=== PATIENT | male | born 1950 | race African-American/Black ===

== ENCOUNTER 2017-05-03 09:17 | Observation (INO) | payer MEDICARE ==
[~2017-05-03] VITALS: Ht 167.6 cm; Wt 116.0 kg
[2017-05-03] VITALS (11 sets, daily range): BP systolic 135–179; BP diastolic 78–100; PULSE 77–117; RESP 15–19; TEMP 98.2–98.5; O2SAT 96–100
--- NOTE | 2017-05-03 09:47 | PD ---
HPI Chief Complaint: Syncope/Near-Syncope Time Seen by Provider: 09:24 Travel History International Travel<30 days: No Contact w/Intl Traveler<30days: No Traveled to known affect area: No History of Present Illness HPI This 66-year-old man, presents to the emergency department with a syncopal episode. His multiple medical problems according diabetes hypertension COPD. He has no heart history. He started to get an episode of coughing and gagging which he attributes to his reflux that he believes was triggered by his granddaughters perfume. He was walking to the bathroom because he felt like he needed to throw up. Apparently these kinds of episodes are not uncommon for him. However today while walking to the bathroom he then passed out and woke up on the floor. He did not feel like he had any premonitory lightheadedness, dizziness, chest pain. He did feel like maybe had a little bit of trouble breathing. His granddaughter reports that he hit his head on the wall hard enough that he put a hole in the wall. Patient complains of a little bit of low back pain that he describes as "kind of sore". Denies any headache or neck pain. EMS arrived and found the patient to be in A. fib RVR with a heart rate in the 120s or so. No history of A. fib so far as the patient knows. He otherwise had been feeling generally well and healthy. History Past Medical History Narrative Medical COPD, on 5 mg of prednisone daily, when necessary oxygen at home Hypertension Diabetes Hyperlipidemia GERD Sleep apnea, on C Pap at night Influenza Vaccination: Yes Social History Alcohol Use: No Tobacco Use: No Allergies-Medications (Allergen,Severity, Reaction): Coded Allergies: Tramadol (Verified Allergy, Intermediate, SKIN ISSUE, 05/03/17) Reported Meds & Prescriptions Reported Meds & Active Scripts Active Reported Effexor XR 24 HR (Venlafaxine HCl) 75 Mg Cap 75 Mg PO DAILY Carafate (Sucralfate) 1 Gm Tab 1 Gm PO QID On empty stomach Deltasone (Prednisone) 20 Mg Tab 5 Mg PO DAILY Klor-Con M20 (Potassium Chloride Microencaps) 20 Meq Tab 20 Meq PO EVERY OTHER DAY Protonix (Pantoprazole Sodium) 40 Mg Tab 40 Mg PO BID Metformin (Metformin HCl) 1,000 Mg Tab 1,000 Mg PO BIDPC With meals Cozaar (Losartan Potassium) 100 Mg Tab 100 Mg PO DAILY Xyzal (Levocetirizine Dihydrochloride) 5 Mg Tablet 5 Mg PO HS Duoneb (Ipratropium-Albuterol Neb) 0.5-2.5 Mg/3 Ml Neb 1 Nebule INH Q8HR NEB Hydralazine (Hydralazine HCl) 100 Mg Tab 50 Mg PO BID Take with meals Glimepiride 1 Mg Tab 1 Mg PO DAILY@1300 Take with breakfast or first main meal Flonase Nasal [place] (Fluticasone Nasal [place]) 50 Mcg/Act [place] 50 Mcg EACH NARE DAILY Famotidine 20 Mg Tab 20 Mg PO HS Atorvastatin (Atorvastatin Calcium) 20 Mg Tab 20 Mg PO HS Aspirin EC (Aspirin) 81 Mg Tabdr 81 Mg PO DAILY Proair Hfa 8.5 GM Inh (Albuterol Sulfate) 90 Mcg/Act Aer 2 Puff INH Q8HR PRN 108 mcg/actuation Review of Systems Except as stated in HPI: all other systems reviewed are Neg Physical Exam Narrative GENERAL: Generally well-appearing obese 66-year-old man, no acute distress. SKIN: Focused skin assessment warm/dry. HEAD: Atraumatic. Normocephalic. EYES: Pupils equal and round. No scleral icterus. No injection or drainage. ENT: No nasal bleeding or discharge. Mucous membranes pink and moist. NECK: Trachea midline. No JVD. CARDIOVASCULAR: Heart rates irregular. No appreciable murmur. RESPIRATORY: No accessory muscle use. Clear to auscultation. Breath sounds equal bilaterally. GASTROINTESTINAL: Abdomen soft, non-tender, nondistended. Hepatic and splenic margins not palpable. MUSCULOSKELETAL: No obvious deformities. No edema. Some dilated Veins on both legs. NEUROLOGICAL: Awake and alert. No obvious cranial nerve deficits. Motor grossly within normal limits. Normal speech. PSYCHIATRIC: Appropriate mood and affect; insight and judgment normal. Data Data Last Documented VS Vital Signs Date Time Temp Pulse Resp B/P Pulse Ox O2 Delivery O2 Flow Rate FiO2 05/03/17 11:52 92 16 159/88 99 Room Air 05/03/17 09:26 98.3 Orders Electrocardiogram (05/03/17 09:37) Complete Blood Count With Diff (05/03/17 09:37) Comprehensive Metabolic Panel (05/03/17 09:37) Prothrombin Time / Inr (Pt) (05/03/17 09:37) Act Partial Throm Time (Ptt) (05/03/17 09:37) Troponin I (05/03/17 09:37) Thyroid Stimulating Hormone (05/03/17 09:37) Chest, Single Ap (05/03/17 09:37) Ct Brain W/O Iv Contrast(Rout) (05/03/17 09:37) Blood Glucose (05/03/17 09:37) Ecg Monitoring (05/03/17 09:37) Iv Access Insert/Monitor (05/03/17 09:37) Oximetry (05/03/17 09:37) D-Dimer (05/03/17 09:37) Ct Pulmonary Angiogram (05/03/17 ) Iohexol 350 Inj (Omnipaque 350 Inj) (05/03/17 11:28) Diltiazem (Cardizem) (05/03/17 12:00) Admit Order (Ed Use Only) (05/03/17 ) Labs Laboratory Tests Test 05/03/17 09:45 White Blood Count 6.9 TH/MM3 Red Blood Count 4.48 MIL/MM3 Hemoglobin 12.8 GM/DL Hematocrit 38.8 % Mean Corpuscular Volume 86.6 FL Mean Corpuscular Hemoglobin 28.6 PG Mean Corpuscular Hemoglobin 33.1 % Concent Red Cell Distribution Width 15.2 % Platelet Count 260 TH/MM3 Mean Platelet Volume 7.5 FL Neutrophils (%) (Auto) 63.2 % Lymphocytes (%) (Auto) 26.7 % Monocytes (%) (Auto) 8.6 % Eosinophils (%) (Auto) 0.8 % Basophils (%) (Auto) 0.7 % Neutrophils # (Auto) 4.4 TH/MM3 Lymphocytes # (Auto) 1.9 TH/MM3 Monocytes # (Auto) 0.6 TH/MM3 Eosinophils # (Auto) 0.1 TH/MM3 Basophils # (Auto) 0.0 TH/MM3 CBC Comment DIFF FINAL Differential Comment Prothrombin Time 11.0 SEC Prothromb Time International 1.0 RATIO Ratio Activated Partial 23.8 SEC Thromboplast Time D-Dimer Quantitative (PE/DVT) 2.32 MG/L FEU Sodium Level 140 MEQ/L Potassium Level 3.4 MEQ/L Chloride Level 103 MEQ/L Carbon Dioxide Level 26.8 MEQ/L Anion Gap 10 MEQ/L Blood Urea Nitrogen 11 MG/DL Creatinine 0.86 MG/DL Estimat Glomerular Filtration 108 ML/MIN Rate Random Glucose 142 MG/DL Calcium Level 8.2 MG/DL Total Bilirubin 0.7 MG/DL Aspartate Amino Transf 15 U/L (AST/SGOT) Alanine Aminotransferase 32 U/L (ALT/SGPT) Alkaline Phosphatase 64 U/L Troponin I 0.08 NG/ML Total Protein 6.9 GM/DL Albumin 3.4 GM/DL Thyroid Stimulating Hormone 2.260 uIU/ML 3rd Gen [facility] Medical Decision Making Medical Screen Exam Complete: Yes Emergency Medical Condition: Yes Interpretation(s) My review of EKG: A. fib RVR with a rate of 102, right bundle branch block, left axis deviation suggestive trifascicular block, no definite evidence of acute ischemia. Differential Diagnosis A. fib, arrhythmia, PE, vasovagal syncope, CHF, ACS, other Narrative Course Medical decision making INITIAL: 66-year-old man who presents to the emergency department with a syncopal episode, now in A. fib RVR. RVR is a little bit slow for new onset A. fib, he may be on beta blockers or calcium channel blockers already. Return to the list of medications from his primary physician. He recent car ride that was only 2 hours. He did have some shortness of breath that could signify a PE as a cause of the syncope. I think this is unlikely. We'll check d-dimer. We' ll check labs, electrolytes, chest x-ray, CT head for trauma, and reassess. FINAL: Patient with syncope, etiology unclear. New-onset A. fib RVR. Possibly contributing but doesn't seem to be the sole etiology given the rate. We'll check CT pulmonary angiogram. Recommend admission for observation. Raul Goodrich MD May 03, 2017 09:47
[2017-05-03 10:01] LABS: AUTOMATED NEUTROPHIL # 4.4 TH/MM3 (1.8-7.7); BASOPHIL % 0.7 % (0.0-2.0); EOSINOPHIL # 0.1 TH/MM3 (0-0.4); EOSINOPHIL % 0.8 % (0.0-4.0); HEMATOCRIT 38.8 % (39.0-51.0); HEMO FLAGS DIFF FINAL; LYMPH % 26.7 % (9.0-44.0); LYMPHOCYTE # 1.9 TH/MM3 (1.0-4.8); MEAN CELL VOLUME 86.6 FL (80.0-100.0); MEAN CORPUSCULAR HEMOGLOBIN 28.6 PG (27.0-34.0); MEAN CORPUSCULAR HGB CONC 33.1 % (32.0-36.0); MONO % 8.6 % (0.0-8.0); NEUT % 63.2 % (16.0-70.0); PLATELET COUNT 260 TH/MM3 (150-450); RED BLOOD COUNT 4.48 MIL/MM3 (4.50-5.90); RED CELL DISTRIBUTION WIDTH 15.2 % (11.6-17.2); WHITE BLOOD COUNT 6.9 TH/MM3 (4.0-11.0)
[2017-05-03 10:08] LABS: APTT (PATIENT) 23.8 SEC (24.3-30.1)
--- NOTE | 2017-05-03 10:12 | RADRPT ---
EXAM DATE/TIME: 05/03/2017 09:45 [facility] COMPARISON: No previous studies available for comparison. INDICATIONS : Syncope. Pt. has coughing and phlegm. MEDICAL HISTORY : None. SURGICAL HISTORY : None. ENCOUNTER: Initial ACUITY: 1 day PAIN SCORE: 0/10 LOCATION: Bilateral chest FINDINGS: A single view of the chest demonstrates the lungs to be symmetrically aerated without evidence of mas s, infiltrate or effusion. Borderline cardiomegaly. The cardiomediastinal contours are unremarkable. Osseous structures are intact. CONCLUSION: No acute disease. Borderline cardiomegaly. Sanjay Marie MD on May 03, 2017 at 10:10 Board Certified Radiologist. This report was verified electronically.
[2017-05-03] MEDS ORDERED: FLUT1SPR5 EACH NARE (10:17)
[2017-05-03] MEDS ORDERED: ATOR20TA15 PO (10:17)
[2017-05-03] MEDS ORDERED: FAMO20TA2 PO (10:17)
[2017-05-03] MEDS ORDERED: CARA1TAB6 PO (10:17)
[2017-05-03] MEDS ORDERED: POTA-245 PO (10:17)
[2017-05-03] MEDS ORDERED: HYDR-3801 PO (10:17)
[2017-05-03] MEDS ORDERED: METF1000 PO (10:17)
[2017-05-03] MEDS ORDERED: PROT40TA PO (10:17)
[2017-05-03] MEDS ORDERED: LEVO1TAB50 PO (10:17)
[2017-05-03] MEDS ORDERED: IPRASOL INH (10:17)
[2017-05-03] MEDS ORDERED: PRED-503 PO (10:17)
[2017-05-03] MEDS ORDERED: VENL75XR PO (10:17)
[2017-05-03] MEDS ORDERED: COZA100T PO (10:17)
[2017-05-03] MEDS ORDERED: ASPI81TA11 PO (10:17)
[2017-05-03] MEDS ORDERED: GLIM1TAB PO (10:17)
[2017-05-03] MEDS ORDERED: ALBUAER3 INH (10:17)
[2017-05-03 10:28] LABS: ANION GAP 10 MEQ/L (5-15); AST (GOT) 15 U/L (15-37); BICARBONATE 26.8 MEQ/L (21.0-32.0); BLOOD UREA NITROGEN 11 MG/DL (7-18); CHLORIDE 103 MEQ/L (98-107); GLOMERULAR FILTRATION RATE 108 ML/MIN (>89); POTASSIUM 3.4 MEQ/L (3.5-5.1); SODIUM (NA) 140 MEQ/L (136-145)
--- NOTE | 2017-05-03 10:37 | RADRPT ---
EXAM DATE/TIME: 05/03/2017 10:23 [facility] COMPARISON: No previous studies available for comparison. INDICATIONS : Syncopal episode this morning. Hit head on the wall. RADIATION DOSE: 56.37 CTDIvol (mGy) MEDICAL HISTORY : Diabetes mellitus type 2. Cardiovascular disease Chronic obstructive pulmonary disease.Hypertension. SURGICAL HISTORY : None. ENCOUNTER: Initial ACUITY: 1 day PAIN SCALE: 2/10 LOCATION: cranial TECHNIQUE: Multiple contiguous axial images were obtained of the head. Using automated exposure control and adj ustment of the mA and/or kV according to patient size, radiation dose was kept as low as reasonably a chievable to obtain optimal diagnostic quality images. FINDINGS: CEREBRUM: The ventricles are normal for age. No evidence of midline shift, mass lesion, hemorrhage or acute in farction. No extra-axial fluid collections are seen. POSTERIOR FOSSA: The cerebellum and brainstem are intact. The 4th ventricle is midline. The cerebellopontine angle i s unremarkable. EXTRACRANIAL: The visualized portion of the orbits is intact. SKULL: The calvaria is intact. No evidence of skull fracture. CONCLUSION: 1. No acute intracranial abnormality. Meir Merritt MD on May 03, 2017 at 10:34 Board Certified Radiologist. This report was verified electronically.
[2017-05-03 10:41] LABS: ALKALINE PHOSPHATASE 64 U/L (45-117); ALT (GPT) 32 U/L (12-78); TOTAL BILIRUBIN ADULT 0.7 MG/DL (0.2-1.0)
[2017-05-03] MEDS ORDERED: IOHEXOL 350 MG/ML 10 ML VIAL (for RAD DIAG) IV ONE (11:28)
--- NOTE | 2017-05-03 11:54 | RADRPT ---
EXAM DATE/TIME: 05/03/2017 11:20 [facility] COMPARISON: No previous studies available for comparison. INDICATIONS : Syncopal episode. IV CONTRAST: 50 cc Omnipaque 350 (iohexol) IV RADIATION DOSE: 20.65 CTDIvol (mGy) MEDICAL HISTORY : Diabetes mellitus type 2. Gastroesophageal reflux disease. Chronic obstructive pulmonary disease.Hype rtension. Hiatal hernia. SURGICAL HISTORY : None. ENCOUNTER: Initial ACUITY: 1 day PAIN SCALE: 0/10 LOCATION: chest TECHNIQUE: Volumetric scanning of the chest was performed using a pulmonary embolism protocol MIP images were re constructed. Using automated exposure control and adjustment of the mA and/or kV according to patien t size, radiation dose was kept as low as reasonably achievable to obtain optimal diagnostic quality images. FINDINGS: PULMONARY ARTERIES: No filling defects are seen in the pulmonary arteries through the segmental level. LUNGS: There is no consolidation or pneumothorax . Minimal bibasilar linear densities. A 4-5 mm nodule right lower lobe. PLEURAE: There is no pleural thickening or pleural effusion. MEDIASTINUM: There is good visualization of the great vessels of the middle mediastinum. No evidence of mediastin al or hilar adenopathy/mass. MUSCULOSKELETAL: Within normal limits for patient age. MISCELLANEOUS: The visualized upper abdominal organs demonstrate no acute abnormality. CONCLUSION: 1. No evidence for pulmonary embolism. 2. 4-5 mm nodule right lower lobe. Followup CT chest in 6 months recommended for stability. 3. Bibasilar atelectasis. Sanjay Marie MD on May 03, 2017 at 11:45 Board Certified Radiologist. This report was verified electronically.
[2017-05-03] MEDS ORDERED: DILTIAZEM HCL 30 MG TAB PO ONE (12:00)
[2017-05-03] MEDS ORDERED: SENNOSIDES 8.6 MG TAB PO PRN (12:00)
[2017-05-03] MEDS ORDERED: ACETAMINOPHEN 325 MG TAB PO PRN (12:00)
[2017-05-03] MEDS ORDERED: SODIUM CHLORIDE 0.9% FLUSH 10 ML FLUSH IV FLUSH PRN (12:00)
[2017-05-03] MEDS ORDERED: MAGNESIUM HYDROXIDE SUSP 30 ML CUP PO PRN (12:00)
[2017-05-03] MEDS ORDERED: BISACODYL 10 MG SUPP RECTAL PRN (12:00)
[2017-05-03] MEDS ORDERED: ONDANSETRON HCL 4 MG/2 ML VIAL IVP PRN (12:00)
[2017-05-03] MEDS ORDERED: LACTULOSE SYRUP 20 GM/30 ML CUP PO PRN (12:00)
[2017-05-03] MEDS ORDERED: FAMOTIDINE 20 MG TAB PO ONE (12:15)
--- NOTE | 2017-05-03 12:27 | HHI.HP ---
[facility] [place] [facility] Primary Care Physician Unknown Admission Diagnosis syncope, A. fib RVR Diagnoses: Chief Complaint: syncope Travel History International Travel<30 Days: No Contact w/Intl Traveler <30 Da: No Traveled to Known Affected Are: No History of Present Illness Written by Audelia Davila, acting as scribe for Dr. Rich on 05/03/17 at 12:45. This note was transcribed by [email or web address] SOUSA. I, Dr. Bebe Rich personally performed the history, physical exam, and medical decision making; and confirmed the accuracy of the information in the transcribed note. Authenticated by Dr. Bebe Rich on 05/03/17 at 12:45. 66-year-old male with history of COPD on O2 as needed, HTN, HLD, DM, GERD, HARINI on CPAP, presents with an episode of syncope today 05/03/17. The patient reports early this morning he starting coughing triggered by his granddaughters perfume , which exacerbated his acid reflux, then felt like he was going to vomit so he started walking to the bathroom and all of a sudden passed out in the hallway, and woke up on the floor. He denies any symptoms prior to the event including no lightheadedness, dizziness, chest pain, or palpitations. He has shortness of breath at baseline secondary to his COPD but denies any recent worsening. The patient did hit his head on the wall on the way down per the family. Denies any current headache, confusion, blurred vision, or neck pain. 911 was called. Upon EMS arrival, he was found to be in atrial fibrillation with RVR, heart rate around the 120s according to ER MD note. The patient again denies any chest pains. He denies any history of arrhythmia or heart disease. The patient does have a history of coughing/gagging and passed out at the dinner table in the past. The patient now complains of left latera hip pain after the syncopal episode however he was able to ambulate after the fall. He denies any other medical complaints at this time. Review of Systems Except as stated in HPI: all other systems reviewed are Neg Past Family Social History Past Medical History COPD, on O2 as needed at home Diabetes Mellitus Hypertension Hyperlipidemia GERD HARINI on CPAP Depression Seasonal allergies Heart murmur since per the patient Past Surgical History Umbilical hernia repair x2 Bilateral arthroscopic knee surgeries Bilateral carpal tunnel surgeries Reported Medications Effexor XR 24 HR (Venlafaxine HCl) 75 Mg Cap 75 Mg PO DAILY Carafate (Sucralfate) 1 Gm Tab 1 Gm PO QID On empty stomach Deltasone (Prednisone) 20 Mg Tab 5 Mg PO DAILY Klor-Con M20 (Potassium Chloride Microencaps) 20 Meq Tab 20 Meq PO EVERY OTHER DAY Protonix (Pantoprazole Sodium) 40 Mg Tab 40 Mg PO BID Metformin (Metformin HCl) 1,000 Mg Tab 1,000 Mg PO BIDPC With meals Cozaar (Losartan Potassium) 100 Mg Tab 100 Mg PO DAILY Xyzal (Levocetirizine Dihydrochloride) 5 Mg Tablet 5 Mg PO HS Duoneb (Ipratropium-Albuterol Neb) 0.5-2.5 Mg/3 Ml Neb 1 Nebule INH Q8HR NEB Hydralazine (Hydralazine HCl) 100 Mg Tab 50 Mg PO BID Take with meals Glimepiride 1 Mg Tab 1 Mg PO DAILY@1300 Take with breakfast or first main meal Flonase Nasal [place] (Fluticasone Nasal [place]) 50 Mcg/Act [place] 50 Mcg EACH NARE DAILY Famotidine 20 Mg Tab 20 Mg PO HS Atorvastatin (Atorvastatin Calcium) 20 Mg Tab 20 Mg PO HS Aspirin EC (Aspirin) 81 Mg Tabdr 81 Mg PO DAILY Proair Hfa 8.5 GM Inh (Albuterol Sulfate) 90 Mcg/Act Aer 2 Puff INH Q8HR PRN 108 mcg/actuation Allergies: Coded Allergies: Tramadol (Verified Allergy, Intermediate, SKIN ISSUE, 05/03/17) Active Ordered Medications Current Medications Medications (Trade) Dose Ordered Sig/Gilbert Route Start Time Stop Time Status Last Admin (Cardizem) 30 mg ONCE ONCE PO 05/03/17 12:00 05/03/17 12:01 Family History Father with heart failure, Mother with breast cancer, Social History Denies any tobacco, alcohol, or illicit drug use. . Retired. Physical Exam Vital Signs Vital Signs Date Time Temp Pulse Resp B/P Pulse Ox O2 Delivery O2 Flow Rate FiO2 05/03/17 11:52 92 16 159/88 99 Room Air 05/03/17 10:49 89 15 146/85 96 Room Air 05/03/17 09:34 114 16 135/93 97 Room Air 05/03/17 09:26 98.3 117 16 135/93 97 Physical Exam GENERAL: Well-nourished, well-developed middle aged male patient in [facility]. SKIN: Warm and dry. No rash. HEAD: Normocephalic. Atraumatic. EYES: Pupils equal and round. No scleral icterus. No injection or drainage. ENT: No nasal bleeding or discharge. Mucous membranes pink and moist. NECK: Supple. Trachea midline. CARDIOVASCULAR: Irregularly irregular rate and rhythm. S1, S2 noted. No murmur appreciated. RESPIRATORY: No accessory muscle use. Clear to auscultation. Breath sounds equal bilaterally. GASTROINTESTINAL: Abdomen soft, non-tender, nondistended. Normoactive bowel sounds x4. MUSCULOSKELETAL: No obvious deformities. Extremities without clubbing, cyanosis , or edema. NEUROLOGICAL: Awake and alert. No obvious cranial nerve deficits. Motor grossly within normal limits. 5/5 muscle strength in bilateral upper and lower extremities. Normal speech. PSYCHIATRIC: Appropriate mood and affect; insight and judgment normal. Laboratory Laboratory Tests Test 05/03/17 09:45 White Blood Count 6.9 Red Blood Count 4.48 Hemoglobin 12.8 Hematocrit 38.8 Mean Corpuscular Volume 86.6 Mean Corpuscular Hemoglobin 28.6 Mean Corpuscular Hemoglobin 33.1 Concent Red Cell Distribution Width 15.2 Platelet Count 260 Mean Platelet Volume 7.5 Neutrophils (%) (Auto) 63.2 Lymphocytes (%) (Auto) 26.7 Monocytes (%) (Auto) 8.6 Eosinophils (%) (Auto) 0.8 Basophils (%) (Auto) 0.7 Neutrophils # (Auto) 4.4 Lymphocytes # (Auto) 1.9 Monocytes # (Auto) 0.6 Eosinophils # (Auto) 0.1 Basophils # (Auto) 0.0 CBC Comment DIFF FINAL Differential Comment Prothrombin Time 11.0 Prothromb Time International 1.0 Ratio Activated Partial 23.8 Thromboplast Time D-Dimer Quantitative (PE/DVT) 2.32 Sodium Level 140 Potassium Level 3.4 Chloride Level 103 Carbon Dioxide Level 26.8 Anion Gap 10 Blood Urea Nitrogen 11 Creatinine 0.86 Estimat Glomerular Filtration 108 Rate Random Glucose 142 Calcium Level 8.2 Total Bilirubin 0.7 Aspartate Amino Transf 15 (AST/SGOT) Alanine Aminotransferase 32 (ALT/SGPT) Alkaline Phosphatase 64 Troponin I 0.08 Total Protein 6.9 Albumin 3.4 Thyroid Stimulating Hormone 2.260 3rd Gen Result Diagram: 05/03/1745 05/03/17 0945 Imaging Last Impressions Head CT 05/03/17936 Signed Impressions: Service Date/Time: Wednesday, May 03, 2017 10:23 - CONCLUSION: 1. No acute intracranial abnormality. Meir Merritt MD Chest X-Ray 05/03/17936 Signed Impressions: Service Date/Time: Wednesday, May 03, 2017 09:45 - CONCLUSION: No acute disease. Borderline cardiomegaly. Sanjay Marie MD Assessment and Plan Problem List: (1) Syncope ICD Code: R55 Status: Acute (2) Atrial fibrillation with RVR ICD Code: I48.91 Status: Acute (3) Elevated troponin ICD Code: R74.8 Status: Acute Assessment and Plan 66-year-old male with history of COPD on O2 as needed, HTN, HLD, DM, GERD, HARINI on CPAP, presents with an episode of syncope. Syncope: suspect secondary to arrhythmia with afib however need to rule out other possible etiologies. Head CT images reviewed, no acute findings. CXR unremarkable. -check echocardiogram -check carotid U/S -monitor on telemetry -check orthostatic vital signs -consult PT New Onset Atrial Fibrillation with RVR: HR 117 upon arrival, EKG confirms atrial fibrillation with RVR. S/p Cardizem 30mg po x1 in the ER, HR improving. -continue Cardizem 30mg po q6h -monitor on telemetry -consult cardiology -Lyini0Tqom score 3 (HTN, DM, age 66), discussed anticoagulation, patient unsure at this time secondary to cost -continue full strength lovenox 110u sq bid for now Elevated Troponin: trop 0.08, suspect secondary to afib w/RVR, no complaints of chest pain. -continue to rule out ACS with serial cardiac enzymes and EKG -continue aspirin, statin -cardiology consulted as above Pulmonary Nodule: Chest CT showed 4-5mm nodule RLL. -recommend follow up chest CT in 6months Hypertension: chronic -continue patient's losartan and hydralazine -monitor BP, adjust antihypertensives as needed Hyperlipidemia: chronic -continue patient's statin Diabetes Mellitus: chronic -hold patient's metformin -monitor Accu-checks and cover with SSI -hypoglycemia protocol -diabetic diet GERD: chronic -continue home medications including protonix bid Obstructive Sleep Apnea: chronic -continue patient's CPAP at bedtime Left Hip Pain: secondary to fall with syncope as above. -check left hip/pelvis xray although doubt fracture -pain control prn -PT consulted DVT Prophylaxis: Lovenox Discussed Condition With Patient, Patient's family, ER MD Physician Certification 2 Midnight Certification Type: Admission for Inpatient Services Order for Inpatient Services The services are ordered in accordance with Medicare regulations or non- Medicare payer requirements, as applicable. In the case of services not specified as inpatient-only, they are appropriately provided as inpatient services in accordance with the 2-midnight benchmark. Estimated LOS (days): 2 days is the estimated time the patient will need to remain in the hospital, assuming treatment plan goals are met and no additional complications. Post-Hospital Plan: Not yet determined Audelia Davila PA-C May 03, 2017 12:26 Bebe Rich MD May 03, 2017 13:27
[2017-05-03] MEDS: SODIUM CHLOR 0.9% 1000 ML INJ 1,000 ML IV SCH ×2 (12:31→21:52)
[2017-05-03] MEDS ORDERED: DEXTROSE 50% IN WATER 50 ML VIAL(D50) IV PRN (12:45)
[2017-05-03] MEDS ORDERED: GLUCAGON 1 MG/ML VIAL OTHER PRN (12:45)
[2017-05-03] MEDS ORDERED: ENOXAPARIN SODIUM 40 MG/0.4 ML SYRINGE SQ SCH (13:00)
[2017-05-03] MEDS ORDERED: ENOXAPARIN SODIUM 80 MG/0.8 ML SYRINGE SQ ONE (13:15)
--- NOTE | 2017-05-03 15:00 | RADRPT ---
EXAM DATE/TIME: 05/03/2017 13:35 [facility] COMPARISON: No previous studies available for comparison. INDICATIONS : Syncope. MEDICAL HISTORY : Hypercholesterolemia. Hypertension. Chronic obstructive pulmonary disease. Diabetes. SURGICAL HISTORY : Hiatal hernia. Bilateral arthroscopic knee surgery. ENCOUNTER: Initial ACUITY: 1 day PAIN SCORE: 0/10 LOCATION: Bilateral neck. PEAK SYSTOLIC VELOCITIES (cm/sec): ICA/CCA RATIO: Right: 0.7 Left: 1.7 ICA: Right: 72.7 Left: 181.2 CCA: Right: 98.3 Left: 108.6 ECA: Right: 72.7 Left: 86.3 VERTEBRAL: Right: 23.4 antegrade Left: 77.4 antegrade Elevated flow velocities and ICA/CCA ratios have been found to correlate with increased degrees of vessel stenosis, calculated as percentage of diameter relative to a normal segment of distal ICA/CCA FINDINGS: RIGHT CAROTID: No significant stenosis is visualized. There is mild atherosclerotic plaquing. The waveforms are wit hin normal limits. LEFT CAROTID: No significant stenosis is visualized. There is mild atherosclerotic plaquing. The waveforms are with in normal limits. VERTEBRAL ARTERIES: Antegrade flow is seen in both vertebral arteries. MISCELLANEOUS: None. CONCLUSION: 1. Right carotid: Minimal atherosclerotic plaquing. No hemodynamically significant stenosis. 2. Left carotid: There is mild elevation of the peak systolic velocity ratio with an elevated systoli c velocity in the origin the left internal carotid. The exam would suggest a possible stenosis in the origin of the left internal carotid in the range of 50%. Of note, the left internal carotid is quite tortuous. 3. Elevated velocity in the left vertebral. 4. Findings could be further assessed with CT angiography of the distal clinically warranted. Meir Merritt MD on May 03, 2017 at 14:53 Board Certified Radiologist. This report was verified electronically.
[2017-05-03] MEDS ORDERED: MORPHINE SULFATE 4 MG/ML INJ IV PUSH PRN (15:15)
--- NOTE | 2017-05-03 15:15 | RADRPT ---
EXAM DATE/TIME: 05/03/2017 15:02 [facility] COMPARISON: No previous studies available for comparison. INDICATIONS : Left hip pain after fall. MEDICAL HISTORY : None. SURGICAL HISTORY : None. ENCOUNTER: Initial ACUITY: 1 day PAIN SCORE: 2/10 LOCATION: Left hip. FINDINGS: Examination of the left hip was performed with AP Pelvis. The primary and secondary trabecular patte rn of the femoral neck is intact. Mild degenerative changes. The acetabulum is grossly intact. Resid ual contrast in the bladder. CONCLUSION: Mild degenerative changes without fracture. Sanjay Marie MD on May 03, 2017 at 15:12 Board Certified Radiologist. This report was verified electronically.
[2017-05-03] MEDS: ASPIRIN EC 81 MG TABEC PO SCH (15:18)
[2017-05-03] MEDS: VENLAFAXINE HCL XR 75 MG CAP PO SCH (15:18)
[2017-05-03] MEDS: LOSARTAN 50 MG TAB PO SCH (15:18)
[2017-05-03] MEDS: DILTIAZEM-CD 240 MG CAP ER PO SCH (15:19)
[2017-05-03] MEDS: RESP: ALBUTEROL 2.5 MG/IPRATROPIUM 0.5 MG NEB (SCH) INH ×2 (15:26→22:54)
[2017-05-03] MEDS: INSULIN ASPART SUPPLEMENTAL SCALE SQ SCH ×2 (16:00→21:00)
--- NOTE | 2017-05-03 17:05 | MB ---
cc: LUDWIN MILIAN DATE OF CONSULTATION: 05/03/2017 REASON FOR CONSULTATION: Evaluation of syncope and atrial fibrillation. HISTORY OF PRESENT ILLNESS Gloria Quintero is a 66-year-old man from [place], [place], admitted after a syncopal episode and found to be in atrial fibrillation with an accelerated ventricular rate. He has a background longstanding history of hypertension, diabetes, COPD and has obesity. He has been unaware of any palpitations or irregular heartbeat. He had dropped his daughter off of college in [place] and was staying at a hotel. Apparently he says due to acid reflux, he had gathered up a bunch of phlegm in his throat and was going to the bathroom to throw up. He was coughing and gagging and he had complete loss of consciousness. He fell and his head went through one of the conde. Head CT was negative. His back is described as being sore. He does not have any other significant injuries. He was noted to be in A-fib with increased ventricular rate. He is unaware of palpitatons. It is unclear how long he has been in atrial fibrillation. He has been unaware of a slow pulse or rapid pulse. PAST MEDICAL HISTORY: 1. Hypertension. 2. Hyperlipidemia. 3. Diabetes. 4. Gastroesophageal reflux disease. 5. Sleep apnea for which he takes C-PAP. SOCIAL HISTORY: He is . He has four children and 11 grandchildren. 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 He is from [place] originally. He lives in [place], [place]. He has smoked cigars in the past but very little from what I can tells. PAST SURGICAL HISTORY: 1. Umbilical hernia repair down twice. 2. Carpal tunnel release in both hands which he says has come back in the right hand. 3. Bilateral knee arthroscopies. FAMILY HISTORY: Two brothers who have had coronary stents. The patient himself, however, has no history of coronary artery disease or any anginal symptoms. REVIEW OF SYSTEMS: Negative except for what is described in the HPI. PHYSICAL EXAMINATION: Reveals an obese, very pleasant, -Slovak man in no acute distress. He is in A-fib with a mild increased rate. HEENT: Unremarkable. NECK: No bruits. CHEST: Some fine expiratory wheezes. CARDIAC: S1-S2, irregular rate and rhythm, mildly tachycardiac. ABDOMEN: Obese, soft, nontender. No masses. EXTREMITIES: No clubbing, cyanosis or edema. Varicose veins. Good distal pulses. EKG shows A-fib with increased ventricular rate. Right bundle-branch block, left anterior fascicular block. IMPRESSION: 1. A-fib of unknown duration. He has RAMÓN VAS score of 3. He needs to be anticoagulated, he needs rate control. 2. Syncope, etiology not clear. It could have been due to the accelerated ventricular rate. The duration of the A-fib, however, strictly speaking is unclear. PLAN The patient is being monitored on telemetry, 2-D echo Doppler has been ordered. I am going to initiate rate control with diltiazem and stroke prevention with Eliquis. Will check thyroid function tests. Further therapy be determined. MD YUMIKO Urrutia/FRANDY /2:35 PM /4:56 PM
--- NOTE | 2017-05-03 17:07 | EKG ---
Date Performed: 05/03/2017 Time Performed: 09:27:27 PTAGE: 66 years EKG: ATRIAL FIBRILLATION WITH RAPID VENTRICULAR RESPONSE RIGHT BUNDLE BRANCH BLOCK LEFT ANTERIOR FASCICULAR BLOCK MODERATE VOLTAGE CRITERIA FOR LVH, CONSIDER NORMAL VARIANT ABNORMAL ECG NO PREVIOUS TRACING DOCTOR: Camila Lechuga Interpretating Date/Time 05/03/2017 17:05:28
[2017-05-03] MEDS ORDERED: POTASSIUM CHLORIDE 10 MEQ CONTROLLED RELEASE TAB PO ONE (17:30)
[2017-05-03] MEDS ORDERED: FAMOTIDINE 20 MG TAB PO SCH (21:00)
[2017-05-03] MEDS ORDERED: ATORVASTATIN 20 MG TAB PO SCH (21:00)
[2017-05-03] MEDS ORDERED: hydrALAZINE HCL 50 MG TAB PO SCH (21:00)
[2017-05-03] MEDS: SODIUM CHLORIDE 0.9% FLUSH 10 ML FLUSH IV FLUSH SCH (21:50)
[2017-05-03] MEDS: hydrALAZINE HCL 50 MG TAB PO SCH (21:51)
[2017-05-03] MEDS: PANTOPRAZOLE SOD 40 MG DELAYED RELEASE TAB PO SCH (21:51)
[2017-05-03] MEDS: DOCUSATE SODIUM 50 MG/SENNA 8.6 MG TAB PO SCH (21:51)
[2017-05-03] MEDS: ACETAMINOPHEN/HYDROcodone 325 MG/5 MG TAB PO PRN (21:53)
[2017-05-03 22:39] LABS: HEMOGLOBIN A1a 1.5 %; HEMOGLOBIN Ao 83.2 %; HEMOGLOBIN LA1C 2.4 %
[2017-05-04 00:06] VITALS: PULSE 75
[2017-05-04] MEDS ORDERED: ENOXAPARIN SODIUM 120 MG/0.8 ML SYRINGE SQ SCH (01:00)
[2017-05-04 03:31] VITALS: BP 168/87; PULSE 89; RESP 18; TEMP 98.1; O2SAT 98
[2017-05-04 05:13] LABS: AUTOMATED NEUTROPHIL # 4.1 TH/MM3 (1.8-7.7); BASOPHIL % 0.5 % (0.0-2.0); EOSINOPHIL # 0.1 TH/MM3 (0-0.4); EOSINOPHIL % 1.1 % (0.0-4.0); HEMATOCRIT 37.1 % (39.0-51.0); HEMO FLAGS DIFF FINAL; LYMPH % 22.6 % (9.0-44.0); LYMPHOCYTE # 1.4 TH/MM3 (1.0-4.8); MEAN CELL VOLUME 86.8 FL (80.0-100.0); MEAN CORPUSCULAR HEMOGLOBIN 29.1 PG (27.0-34.0); MEAN CORPUSCULAR HGB CONC 33.6 % (32.0-36.0); MONO % 10.9 % (0.0-8.0); NEUT % 64.9 % (16.0-70.0); PLATELET COUNT 245 TH/MM3 (150-450); RED BLOOD COUNT 4.28 MIL/MM3 (4.50-5.90); RED CELL DISTRIBUTION WIDTH 15.2 % (11.6-17.2); WHITE BLOOD COUNT 6.3 TH/MM3 (4.0-11.0)
[2017-05-04 05:30] LABS: ANION GAP 7 MEQ/L (5-15); AST (GOT) 12 U/L (15-37); BICARBONATE 28.9 MEQ/L (21.0-32.0); BLOOD UREA NITROGEN 8 MG/DL (7-18); CHLORIDE 104 MEQ/L (98-107); GLOMERULAR FILTRATION RATE 131 ML/MIN (>89); MAGNESIUM 1.9 MG/DL (1.5-2.5); POTASSIUM 3.6 MEQ/L (3.5-5.1); SODIUM (NA) 140 MEQ/L (136-145)
[2017-05-04 05:31] LABS: ALT (GPT) 25 U/L (12-78)
[2017-05-04 05:36] LABS: ALKALINE PHOSPHATASE 60 U/L (45-117); HDL CHOLESTEROL 58.2 MG/DL (40.0-60.0); LDL CHOLESTEROL 71 MG/DL (0-99); TOTAL BILIRUBIN ADULT 0.9 MG/DL (0.2-1.0)
[2017-05-04] MEDS: INSULIN ASPART SUPPLEMENTAL SCALE SQ SCH ×2 (05:53→11:00)
--- NOTE | 2017-05-04 06:52 | EKG ---
Date Performed: 05/03/2017 Time Performed: 15:19:29 PTAGE: 66 years EKG: Sinus rhythm WITH FREQUENT PACs RIGHT BUNDLE BRANCH BLOCK LEFT ANTERIOR FASCICULAR BLOCK ABNORMAL ECG PREVIOUS TRACING : 05/03/2017 09.27 No significant change from previous tracing noted. DOCTOR: Fidencio Fuentes Interpretating Date/Time 05/04/2017 06:51:24
[2017-05-04 07:38] VITALS: O2SAT 96
[2017-05-04] MEDS: RESP: ALBUTEROL 2.5 MG/IPRATROPIUM 0.5 MG NEB (SCH) INH (07:38)
[2017-05-04] MEDS: SODIUM CHLOR 0.9% 1000 ML INJ 1,000 ML IV SCH (07:52)
[2017-05-04] MEDS: DILTIAZEM-CD 240 MG CAP ER PO SCH (07:53)
[2017-05-04] MEDS: DOCUSATE SODIUM 50 MG/SENNA 8.6 MG TAB PO SCH (07:53)
[2017-05-04] MEDS: VENLAFAXINE HCL XR 75 MG CAP PO SCH (07:53)
[2017-05-04] MEDS: SODIUM CHLORIDE 0.9% FLUSH 10 ML FLUSH IV FLUSH SCH (07:53)
[2017-05-04] MEDS: PANTOPRAZOLE SOD 40 MG DELAYED RELEASE TAB PO SCH (07:54)
[2017-05-04] MEDS: ASPIRIN EC 81 MG TABEC PO SCH (07:54)
[2017-05-04] MEDS: hydrALAZINE HCL 50 MG TAB PO SCH (07:54)
[2017-05-04] MEDS: LOSARTAN 50 MG TAB PO SCH (07:54)
[2017-05-04 07:56] VITALS: BP 163/97; PULSE 92; RESP 24; TEMP 98.2; O2SAT 97
[2017-05-04] MEDS ORDERED: LOSARTAN 50 MG TAB PO SCH (09:00)
[2017-05-04] MEDS: ACETAMINOPHEN/HYDROcodone 325 MG/5 MG TAB PO PRN (09:27)
[2017-05-04 11:28] VITALS: BP 135/78; PULSE 100; RESP 20; TEMP 98.7; O2SAT 96
--- NOTE | 2017-05-04 12:29 | HHI.DS ---
Discharge Summary Admission Date May 03, 2017 at 11:52 Discharge Date: May 04, 2017 Admitting Diagnosis syncope, A. fib RVR (1) Syncope ICD Code: R55 Diagnosis: Principal (2) Atrial fibrillation with RVR ICD Code: I48.91 Diagnosis: Principal (3) Elevated troponin ICD Code: R74.8 Diagnosis: Principal Procedures none Brief History - From Admission Written by Audelia Davila, acting as scribe for Dr. Rich on 05/03/17 at 12:45. This note was transcribed by [email or web address] SOUSA. I, Dr. Bebe Rich personally performed the history, physical exam, and medical decision making; and confirmed the accuracy of the information in the transcribed note. Authenticated by Dr. Bebe Rich on 05/03/17 at 12:45. 66-year-old male with history of COPD on O2 as needed, HTN, HLD, DM, GERD, HARINI on CPAP, presents with an episode of syncope today 05/03/17. The patient reports early this morning he starting coughing triggered by his granddaughters perfume , which exacerbated his acid reflux, then felt like he was going to vomit so he started walking to the bathroom and all of a sudden passed out in the hallway, and woke up on the floor. He denies any symptoms prior to the event including no lightheadedness, dizziness, chest pain, or palpitations. He has shortness of breath at baseline secondary to his COPD but denies any recent worsening. The patient did hit his head on the wall on the way down per the family. Denies any current headache, confusion, blurred vision, or neck pain. 911 was called. Upon EMS arrival, he was found to be in atrial fibrillation with RVR, heart rate around the 120s according to ER MD note. The patient again denies any chest pains. He denies any history of arrhythmia or heart disease. The patient does have a history of coughing/gagging and passed out at the dinner table in the past. The patient now complains of left latera hip pain after the syncopal episode however he was able to ambulate after the fall. He denies any other medical complaints at this time. CBC/BMP: 05/04/17 0359 05/04/17 0359 Significant Findings Laboratory Tests Test 05/03/17 05/03/17 05/03/17 05/04/17 09:45 15:17 21:49 03:59 Red Blood Count 4.48 MIL/MM3 4.28 MIL/MM3 (4.50-5.90) (4.50-5.90) Hemoglobin 12.8 GM/DL 12.5 GM/DL (13.0-17.0) (13.0-17.0) Hematocrit 38.8 % 37.1 % (39.0-51.0) (39.0-51.0) Monocytes (%) (Auto) 8.6 % (0.0-8.0) 10.9 % (0.0-8.0) Activated Partial 23.8 SEC Thromboplast Time (24.3-30.1) D-Dimer Quantitative (PE/DVT) 2.32 MG/L FEU (0.00-0.50) Potassium Level 3.4 MEQ/L (3.5-5.1) Random Glucose 142 MG/DL 114 MG/DL (74-106) (74-106) Calcium Level 8.2 MG/DL 8.0 MG/DL (8.5-10.1) (8.5-10.1) Troponin I 0.08 NG/ML 0.10 NG/ML 0.09 NG/ML (0.02-0.05) (0.02-0.05) (0.02-0.05) Hemoglobin A1c 6.5 % (4.3-6.0) Aspartate Amino Transf 12 U/L (15-37) (AST/SGOT) Albumin 3.2 GM/DL (3.4-5.0) Imaging Last Impressions Head CT 05/03/17936 Signed Impressions: Service Date/Time: Wednesday, May 03, 2017 10:23 - CONCLUSION: 1. No acute intracranial abnormality. Meir Merritt MD Chest X-Ray 05/03/17936 Signed Impressions: Service Date/Time: Wednesday, May 03, 2017 09:45 - CONCLUSION: No acute disease. Borderline cardiomegaly. Sanjay Marie MD Hip and Pelvis X-Ray 05/03/17 Signed Impressions: Service Date/Time: Wednesday, May 03, 2017 15:02 - CONCLUSION: Mild degenerative changes without fracture. Sanjay Marie MD Carotid Artery Ultrasound 05/03/17 Signed Impressions: Service Date/Time: Wednesday, May 03, 2017 13:35 - CONCLUSION: 1. Right carotid: Minimal atherosclerotic plaquing. No hemodynamically significant stenosis. 2. Left carotid: There is mild elevation of the peak systolic velocity ratio with an elevated systolic velocity in the origin the left internal carotid. The exam would suggest a possible stenosis in the origin of the left internal carotid in the range of 50%%. Of note, the left internal carotid is quite tortuous. 3. Elevated velocity in the left vertebral. 4. Findings could be further assessed with CT angiography of the distal clinically warranted. Meir Merritt MD CT Angiography 05/03/17 Signed Impressions: Service Date/Time: Wednesday, May 03, 2017 11:20 - CONCLUSION: 1. No evidence for pulmonary embolism. 2. 4-5 mm nodule right lower lobe. Followup CT chest in 6 months recommended for stability. 3. Bibasilar atelectasis. Sanjay Marie MD PE at Discharge GENERAL: Well-nourished, well-developed middle aged male patient in [facility]. SKIN: Warm and dry. No rash. HEAD: Normocephalic. Atraumatic. EYES: Pupils equal and round. No scleral icterus. No injection or drainage. ENT: No nasal bleeding or discharge. Mucous membranes pink and moist. NECK: Supple. Trachea midline. CARDIOVASCULAR: Irregularly irregular rate and rhythm. S1, S2 noted. No murmur appreciated. RESPIRATORY: No accessory muscle use. Clear to auscultation. Breath sounds equal bilaterally. GASTROINTESTINAL: Abdomen soft, non-tender, nondistended. Normoactive bowel sounds x4. MUSCULOSKELETAL: No obvious deformities. Extremities without clubbing, cyanosis , or edema. NEUROLOGICAL: Awake and alert. No obvious cranial nerve deficits. Motor grossly within normal limits. 5/5 muscle strength in bilateral upper and lower extremities. Normal speech. PSYCHIATRIC: Appropriate mood and affect; insight and judgment normal. Pt update on day of discharge Feels better, no palpitations. No n/v/d/c. Deneis chest pain or sob. No lightheadedness. HR better controlled on meds. Pain is better controlled now Hospital Course 66-year-old male with history of COPD on O2 as needed, HTN, HLD, DM, GERD, HARINI on CPAP, presents with an episode of syncope. Syncope: suspect secondary to arrhythmia with afib however need to rule out other possible etiologies. Head CT images reviewed, no acute findings. CXR unremarkable. -check echocardiogram p -check carotid U/S nl -monitor on telemetry -check orthostatic vital signs -consult PT New Onset Atrial Fibrillation with RVR: HR 117 upon arrival, EKG confirms atrial fibrillation with RVR. S/p Cardizem 30mg po x1 in the ER, HR improving. -continue Cardizem 240 mg po daily -monitor on telemetry -consult cardiology, cleared by cardio for DC, on eliquis and cardizem PO. -[id number] score 3 (HTN, DM, age 66), discussed anticoagulation, patient unsure at this time secondary to cost -continue full strength lovenox 110u sq bid for now Elevated Troponin: trop 0.08, suspect secondary to afib w/RVR, no complaints of chest pain. -continue to rule out ACS with serial cardiac enzymes and EKG -continue aspirin, statin -cardiology consulted as above Pulmonary Nodule: Chest CT showed 4-5mm nodule RLL. -recommend follow up chest CT in 6months Hypertension: chronic -continue patient's losartan and hydralazine -monitor BP, adjust antihypertensives as needed Hyperlipidemia: chronic -continue patient's statin Diabetes Mellitus: chronic -hold patient's metformin -monitor Accu-checks and cover with SSI -hypoglycemia protocol -diabetic diet GERD: chronic -continue home medications including protonix bid Obstructive Sleep Apnea: chronic -continue patient's CPAP at bedtime Left Hip Pain: secondary to fall with syncope as above. -check left hip/pelvis xray no fracture -pain control prn -PT consulted DVT Prophylaxis: Lovenox Discussed Condition With Patient, Nurse, Patient's family Discharged in stable condition to follow up as OP with PCP and consultants. Patient to follow up as OP with his cardiology Pt Condition on Discharge: Stable Discharge Disposition: Discharge Home Discharge Time: > 30 minutes Discharge Instructions DIET: Follow Instructions for: Heart Healthy Diet Activities you can perform: Regular-No Restrictions Follow up Referrals: Cardiology - 1 Week PCP Follow-up - 3-5 Days New Medications: Hydrocodone-Acetaminophen ([place]) 5-325 mg Tab 1 TAB PO Q6H PRN PAIN #20 Ref 0 TAB Apixaban (Eliquis) 5 Mg Tab 5 MG PO BID Blood Clot Prevention #60 TAB Diltiazem CD 24 HR (Cardizem CD 24 HR) 240 Mg Caper 240 MG PO DAILY Blood Pressure Management #30 CAP Continued Medications: Albuterol 8.5 GM Inh (Proair Hfa 8.5 GM Inh) 90 Mcg/Act Aer 2 PUFF INH Q8HR 108 mcg/actuation PRN SHORTNESS OF BREATH #1 Ref [address] (Aspirin EC) 81 Mg Tabdr 81 MG PO DAILY Ref 0 TAB Atorvastatin (Atorvastatin) 20 Mg Tab 20 MG PO HS Cholesterol Management #30 Ref 0 TAB Famotidine (Famotidine) 20 Mg Tab 20 MG PO HS #60 Ref 0 TAB Fluticasone Nasal [place] (Flonase Nasal [place]) 50 Mcg/Act [place] 50 MCG EACH NARE DAILY Allergies #1 Ref 0 BOTTLE Glimepiride (Glimepiride) 1 Mg Tab 1 MG PO DAILY@1300 Take with breakfast or first main meal Blood Sugar Management #30 Ref 0 TAB Hydralazine (Hydralazine) 100 Mg Tab 50 MG PO BID Take with meals Blood Pressure Management Ref 0 TAB Ipratropium-Albuterol Neb (Duoneb) 0.5-2.5 Mg/3 Ml Neb 1 NEBULE INH Q8HR NEB Breathing Treatment #90 Ref 0 NEBULE Levocetirizine Dihydrochloride (Xyzal) 5 Mg Tablet 5 MG PO HS Losartan (Cozaar) 100 Mg Tab 100 MG PO DAILY Blood Pressure Management #30 Ref 0 TAB Metformin (Metformin) 1,000 Mg Tab 1000 MG PO BIDPC With meals Blood Sugar Management #60 Ref 0 TAB Pantoprazole (Protonix) 40 Mg Tab 40 MG PO BID Reflux #30 Ref 0 TAB Potassium Chloride Microencaps (Klor-Con M20) 20 Meq Tab 20 MEQ PO EVERY OTHER DAY Electrolyte Replacement #30 Ref 0 TAB Prednisone (Deltasone) 20 Mg Tab 5 MG PO DAILY #30 Ref 0 TAB Sucralfate (Carafate) 1 Gm Tab 1 GM PO QID On empty stomach Ulcer Prevention #120 Ref 0 TAB Venlafaxine ER 24 HR (Effexor XR 24 HR) 75 Mg Cap 75 MG PO DAILY #30 Ref 0 CAP Bebe Rich MD May 04, 2017 12:29
[2017-05-04] MEDS ORDERED: CARD240C6 PO (12:33)
[2017-05-04] MEDS ORDERED: APIX5TAB PO (12:33)
--- NOTE | 2017-05-04 12:33 | PD.CARD.PN ---
Subjective Subjective Remarks Feels much better. No complaints Objective Medications Current Medications Medications (Trade) Dose Ordered Sig/Gilbert Route Start Time Stop Time Status Last Admin (NS 1000 ml Inj) 1,000 ml @ 100 mls/hr Q10H IV 05/03/17 12:00 05/04/17 07:52 (NS Flush) 2 ml UNSCH PRN IV FLUSH 05/03/17 12:00 (NS Flush) 2 ml BID IV FLUSH 05/03/17 21:00 05/04/17 07:53 (Tylenol) 650 mg Q4H PRN PO 05/03/17 12:00 (Zofran Inj) 4 mg Q6H PRN IVP 05/03/17 12:00 (Rebeca-Colace) 1 tab BID PO 05/03/17 21:00 05/04/17 07:53 (Milk Of Magnesia Liq) 30 ml Q12H PRN PO 05/03/17 12:00 (Senokot) 17.2 mg Q12H PRN PO 05/03/17 12:00 (Dulcolax Supp) 10 mg DAILY PRN RECTAL 05/03/17 12:00 (Lactulose Liq) 30 ml DAILY PRN PO 05/03/17 12:00 (Ecotrin Ec) 81 mg DAILY PO 05/03/17 12:30 05/04/17 07:54 (Lipitor) 20 mg HS PO 05/03/17 21:00 05/03/17 21:51 (Pepcid) 20 mg HS PO 05/03/17 21:00 05/03/17 21:51 (Cozaar) 100 mg DAILY PO 05/03/17 12:30 05/04/17 07:54 (Protonix) 40 mg BID PO 05/03/17 21:00 05/04/17 07:54 (Effexor Xr) 75 mg DAILY PO 05/03/17 12:30 05/04/17 07:53 (D50w (Vial) Inj) 50 ml UNSCH PRN IV 05/03/17 12:45 Glucagon 1 mg 1 mg UNSCH PRN OTHER 05/03/17 12:45 (Coumadin Consult Pharmacy) 0 ml @ 0 mls/hr UNSCH OTHER 05/03/17 13:30 (Cardizem Cd) 240 mg DAILY PO 05/03/17 15:00 05/04/17 07:53 (Apresoline) 50 mg Q12HR PO 05/03/17 21:00 05/04/17 07:54 ([place] 5-325 Mg) 1 tab Q4H PRN PO 05/03/17 15:15 05/04/17 09:27 (Morphine Inj) 2 mg Q4H PRN IV PUSH 05/03/17 15:15 (Coumadin) 5 mg DAILY@16 PO 05/04/17 16:00 (Coumadin Booklet) 1 ONCE ONCE .XX 05/04/17 16:00 05/04/17 16:01 Vital Signs / I&O Vital Signs Date Time Temp Pulse Resp B/P Pulse Ox O2 Delivery O2 Flow Rate FiO2 05/04/17 11:28 98.7 100 20 135/78 96 05/04/17 07:56 98.2 92 24 163/97 97 05/04/17 07:38 96 Nasal Cannula 2.00 05/04/17 03:31 98.1 89 18 168/87 98 05/04/17 00:06 75 05/03/17 23:36 98.5 85 18 178/87 98 05/03/17 23:16 18 05/03/17 22:56 99 Nasal Cannula 2.00 05/03/17 21:09 98.2 77 18 155/78 98 05/03/17 19:31 97 Nasal Cannula 05/03/17 15:50 98.2 80 19 179/97 100 05/03/17 15:08 85 16 165/86 98 Room Air Physical Exam GENERAL: Well developed, well nourished. No acute distress. Severely obese HEENT: Jugular venous pressure is normal. CHEST: Lungs clear to auscultation bilaterally. Unlabored respiratory effort. CARDIAC: irregular rate and rhythm without S3, S4, or murmur. ABDOMEN: Soft, nontender, no hepatosplenomegaly. Bowel sounds present. EXTREMITIES: No clubbing, cyanosis, or edema. ECHO: LVH with nl LVEF. LA 4.0 cm TELE: afib rate better controlled Laboratory Laboratory Tests Test 05/03/17 05/03/17 05/04/17 15:17 21:49 03:59 Troponin I 0.10 NG/ML 0.09 NG/ML Hemoglobin A1c 6.5 % White Blood Count 6.3 TH/MM3 Red Blood Count 4.28 MIL/MM3 Hemoglobin 12.5 GM/DL Hematocrit 37.1 % Mean Corpuscular Volume 86.8 FL Mean Corpuscular Hemoglobin 29.1 PG Mean Corpuscular Hemoglobin 33.6 % Concent Red Cell Distribution Width 15.2 % Platelet Count 245 TH/MM3 Mean Platelet Volume 7.6 FL Neutrophils (%) (Auto) 64.9 % Lymphocytes (%) (Auto) 22.6 % Monocytes (%) (Auto) 10.9 % Eosinophils (%) (Auto) 1.1 % Basophils (%) (Auto) 0.5 % Neutrophils # (Auto) 4.1 TH/MM3 Lymphocytes # (Auto) 1.4 TH/MM3 Monocytes # (Auto) 0.7 TH/MM3 Eosinophils # (Auto) 0.1 TH/MM3 Basophils # (Auto) 0.0 TH/MM3 CBC Comment DIFF FINAL Differential Comment Sodium Level 140 MEQ/L Potassium Level 3.6 MEQ/L Chloride Level 104 MEQ/L Carbon Dioxide Level 28.9 MEQ/L Anion Gap 7 MEQ/L Blood Urea Nitrogen 8 MG/DL Creatinine 0.73 MG/DL Estimat Glomerular Filtration 131 ML/MIN Rate Random Glucose 114 MG/DL Calcium Level 8.0 MG/DL Magnesium Level 1.9 MG/DL Total Bilirubin 0.9 MG/DL Aspartate Amino Transf 12 U/L (AST/SGOT) Alanine Aminotransferase 25 U/L (ALT/SGPT) Alkaline Phosphatase 60 U/L Total Protein 6.4 GM/DL Albumin 3.2 GM/DL Triglycerides Level 53 MG/DL Cholesterol Level 140 MG/DL LDL Cholesterol 71 MG/DL HDL Cholesterol 58.2 MG/DL Cholesterol/HDL Ratio 2.40 RATIO Assessment and Plan Problem List: (1) Hypertensive heart disease Assessment and Plan: LVH on echo (2) Atrial fibrillation with RVR Assessment and Plan: Better controlled (3) Elevated troponin Assessment and Plan: doubt ACS. Probably due to LVH. No angina. Curve is flat (4) Syncope Assessment and Plan: Prob due to AF vs vasovagal Assessment and Plan OK with me to DC home. Educated extensively about Eliquis. Risks discussed. OK to DC home. Needs cardiology F/U back home. Discussed Condition With family Zach Canela MD May 04, 2017 12:33
[2017-05-04] MEDS ORDERED: NORC5TAB PO (13:18)
[2017-05-04] MEDS ORDERED: WARFARIN SOD 5 MG TAB PO SCH (16:00)
--- NOTE | 2017-05-04 16:41 | ECHRPT ---
CONCLUSIONS Normal left ventricular size. Moderate concentric left ventricular hypertrophy. The left ventricular systolic function is normal with an estimated ejection fraction in the range of 60-65%. Moderate mitral valve regurgitation. There is moderate tricuspid regurgitation. There is estimated moderate pulmonary hypertension present (53 mmHg). BP: 159 / 88 HR: 92 Rhythm: Atrial fibrillation MEASUREMENTS (Male / Female) Normal Values Technical Quality:Fair 2D ECHO LV Diastolic Diameter PLAX 5.4 cm 4.2 - 5.9 / 3.9 - 5.3 cm LV Systolic Diameter PLAX 4.0 cm IVS Diastolic Thickness 1.8 cm 0.6 - 1.0 / 0.6 - 0.9 cm LVPW Diastolic Thickness 1.4 cm 0.6 - 1.0 / 0.6 - 0.9 cm LV Relative Wall Thickness 0.6 RV Internal Dim ED PLAX 2.3 cm LA Systolic Diameter LX 3.8 cm 3.0 - 4.0 / 2.7 - 3.8 cm M-MODE Aortic Root Diameter MM 3.2 cm AV Cusp Separation MM 1.9 cm DOPPLER AV Peak Velocity 235.0 cm/s AV Peak Gradient 22.1 mmHg LVOT Peak Velocity 164.0 cm/s LVOT Peak Gradient 10.8 mmHg MR Peak Velocity 459.0 cm/s MR Peak Gradient 84.3 mmHg TR Peak Velocity 346.0 cm/s TR Peak Gradient 47.9 mmHg FINDINGS LEFT VENTRICLE Normal left ventricular size. Moderate concentric left ventricular hypertrophy. Normal LV fx. RIGHT VENTRICLE Normal right ventricular size and systolic function. LEFT ATRIUM The left atrial size is normal. RIGHT ATRIUM The right atrial size is normal. ATRIAL SEPTUM Normal atrial septal thickness without atrial level shunting by limited color doppler interrogation. AORTA The aortic root and proximal ascending aorta are normal in size on limited imaging. MITRAL VALVE Moderate mitral valve regurgitation. AORTIC VALVE Trileaflet aortic valve. No aortic valve stenosis or regurgitation. TRICUSPID VALVE There is moderate tricuspid regurgitation. There is estimated moderate pulmonary hypertension present (53 mmHg). PULMONARY VALVE The pulmonary valve is not well visualized. VESSELS The inferior vena cava is normal in size. PERICARDIUM No pericardial effusion. Thor Lazaro MD, FACC (Electronically Signed) Final Date:04 May 2017 16:40
[2017-05-04] MEDS ORDERED: APIXABAN 5 MG TABLET PO SCH (21:00)
== END 2017-05-04 15:05 | disposition home or self-care (01) ==
LOC: NEPC 09:17 → NEDA 11:52 → INTOOBSV 11:52 → NEPFCDU 15:43
PROVIDERS: ADMIT Hospitalist; ATTEND Hospitalist
DX: R55 Syncope and collapse (principal); I48.91 Unspecified atrial fibrillation; R74.8 Abnormal levels of other serum enzymes; R91.1 Solitary pulmonary nodule; I10 Essential (primary) hypertension; E11.9 Type 2 diabetes mellitus without complications; K21.9 Gastro-esophageal reflux disease without esophagitis; J44.9 Chronic obstructive pulmonary disease, unspecified; G47.33 Obstructive sleep apnea (adult) (pediatric); M25.552 Pain in left hip; E78.5 Hyperlipidemia, unspecified; F32.9 Major depressive disorder, single episode, unspecified; Z79.82 Long term (current) use of aspirin; Z79.84 Long term (current) use of oral hypoglycemic drugs
CPT/HCPCS: 70450; 71010; 71275; 73502; 80053; 80061; 82948; 83036; 83735; 84443; 84484; 85025; 85379; 85610; 85730; 93005; 93306; 93880; 94640; 94664; 97161; 99285; G8987; G8988; J1650; J7030; Q9967